=== PATIENT | female | born 1985 | race Caucasian/White ===

== ENCOUNTER → 2019-11-19 | Outpatient (CLI) | payer BC | LOC: LAB 08:22 | DX: N30.01 Acute cystitis with hematuria (principal) ==

== ENCOUNTER → 2023-08-14 | Outpatient (CLI) | payer BC | LOC: LAB 08:35 | DX: N39.0 Urinary tract infection, site not specified (principal) ==

== ENCOUNTER → 2024-04-17 | Outpatient (REF) | payer BC | LOC: LAB 12:11 | DX: N39.0 Urinary tract infection, site not specified (principal) ==

== ENCOUNTER → 2024-11-06 | Outpatient (CLI) | payer BC ==
[2024-11-06 09:42] LABS: BASO # 0.01 K/mm3 (0.02-0.10); HEMATOCRIT 45.3 % (37.0-47.0); HEMOGLOBIN 14.9 g/dL (12.5-16.0); LYMPH# 1.37 K/mm3 (1.50-4.00); MEAN CELL VOLUME 85 fl (78-100); MEAN CORPUSCULAR HEMOGLOBIN 28 pg (27-31); MEAN CORPUSCULAR HGB CONC 33 g/dL (33-37); MEAN PLATELET VOLUME 8.7 fl (7.4-10.4); MONO # 0.65 K/mm3 (0.20-0.80); NEU # 3.86 K/mm3 (1.40-6.50); PLATELET COUNT 220 K/mm3 (130-400); RED BLOOD COUNT 5.32 M/mm3 (4.10-5.30); RED CELL DISTRIBUTION WIDTH 12.3 % (11.5-14.5); WHITE BLOOD COUNT 5.9 K/mm3 (4.8-10.8)
[2024-11-06 10:13] LABS: ALBUMIN 4.1 g/dL (3.5-5.0)
[2024-11-06 10:15] LABS: CALCIUM 8.9 mg/dL (8.3-10.5)
[2024-11-06 10:16] LABS: TOTAL PROTEIN 7.4 g/dL (6.4-8.3)
[2024-11-06 10:18] LABS: TOTAL BILIRUBIN 0.4 mg/dL (0.2-1.2)
== END ==
LOC: LAB 09:20
PROVIDERS: Family Medicine
DX: H04.123 Dry eye syndrome of bilateral lacrimal glands (principal); I10 Essential (primary) hypertension